=== PATIENT | male | born 2000 | race Hispanic/Latino ===

== ENCOUNTER 2021-07-09 12:30 | Emergency (ER) | payer MEDICAID, OTHER ==
[~2021-07-09] VITALS: Ht 157.5 cm; Wt 102.1 kg
[2021-07-09 12:32] VITALS: BP 126/82
== END 2021-07-09 13:31 | disposition left against medical advice (07) ==
LOC: EDH 12:30
DX: U07.1 COVID-19 (principal); Z53.21 Procedure and treatment not carried out due to patient leaving prior to being seen by health care provider
CPT/HCPCS: 71045